=== PATIENT | female | born 1995 | race Caucasian/White ===

== ENCOUNTER 2016-08-12 08:15 | Emergency (ER) | payer OTHER, MEDICAID ==
[2016-08-12] MEDS ORDERED: DEXAMETHASONE 10 MG/ML VIAL PO STA (08:41)
[2016-08-12] MEDS ORDERED: ONDANSETRON ODT 4 MG TABLET TL STA (08:41)
[2016-08-12] MEDS ORDERED: MAG HYDROX/AL HYDROX/SIMETH 30 ML UDC PO STA (08:41)
[2016-08-12] MEDS ORDERED: ONDANSETRON ODT 4 MG TABLET ONE (08:46)
[2016-08-12] MEDS ORDERED: MAG HYDROX/AL HYDROX/SIMETH 30 ML UDC ONE (08:46)
[2016-08-12] MEDS ORDERED: DEXAMETHASONE 10 MG/ML VIAL ONE (08:47)
== END 2016-08-12 09:37 | disposition home or self-care (01) ==
DX: R09.81 Nasal congestion (principal); R11.10 Vomiting, unspecified; O99.332 Smoking (tobacco) complicating pregnancy, second trimester; Z3A.18 18 weeks gestation of pregnancy
CPT/HCPCS: 99283; A9270; Q0162

== ENCOUNTER 2016-09-01 14:17 | Outpatient (CLI) | payer OTHER, MEDICAID | END 2016-09-01 14:18 | disposition home or self-care (01) | DX: Z36 Encounter for antenatal screening of mother (principal) ==

== ENCOUNTER 2016-09-02 12:30 | Outpatient (CLI) | payer OTHER, MEDICAID | END 2016-09-02 12:31 | disposition home or self-care (01) | DX: Z34.82 Encounter for supervision of other normal pregnancy, second trimester (principal) ==

== ENCOUNTER 2016-10-08 14:34 | Outpatient (CLI) | payer MEDICAID, OTHER ==
--- NOTE | 2016-10-08 16:10 | Ultrasound Report ---
OB FOLLOWUP: 10/08/2016 CLINICAL INDICATION: Incomplete anatomy. TECHNIQUE: Real-time scanning was performed with customer contact representative static images obtained. LAST MENSTRUAL PERIOD 04/13/2016 Clinical Age 25 weeks 3 days US Age 25 weeks 0 days EFW Had[place] 749 g EFW% Hadlock 21 % Heart Rate 130 bpm EDC 01/18/2017 US EDC 01/21/2017 BPD [place] 25 weeks 0 days; means mm 61.7 HC [place] 25 weeks 0 days; means mm 229.7 AC [place] 24 weeks 6 days; means mm 203.2 FL [place] 24 weeks 6 days; means mm 45.0 Presentation cephalic Placental Location posterior Cervical Length -- Amniotic Fluid 3.6 cm FINDINGS: There is a single viable intrauterine gestation, in cephalic presentation. heart rate is 130 BPM. The placenta is posterior, without evidence of previa. By size, the fetus measures 25.0 weeks (25.5 weeks by previous sonogram). The facial structures, including nose and lips, appear unremarkable. No free fluid or adnexal lesion is appreciated. IMPRESSION: SINGLE VIABLE INTRAUTERINE GESTATION, WITH EXPECTED GROWTH FROM PREVIOUS OF 09/02/2016. UNREMARKABLE COMPLETION OF THE ANATOMIC SURVEY. MTDD
== END 2016-10-08 14:35 | disposition home or self-care (01) ==
LOC: DI 14:34
PROVIDERS: ATTEND Obstetrics & Gynecology
DX: Z36 Encounter for antenatal screening of mother (principal)
CPT/HCPCS: 76816

== ENCOUNTER 2016-10-08 15:27 | Outpatient (CLI) | payer OTHER, MEDICAID | END 2016-10-08 15:28 | disposition home or self-care (01) | DX: Z36 Encounter for antenatal screening of mother (principal) ==

== ENCOUNTER 2016-10-28 15:10 | Outpatient (CLI) | payer MEDICAID | END 2016-10-28 15:11 | LOC: LAB.R 15:10 | PROVIDERS: ATTEND Obstetrics & Gynecology | DX: Z36 Encounter for antenatal screening of mother (principal) | CPT/HCPCS: 87491; 87591 ==